=== PATIENT | female | born 2000 | race Caucasian/White ===

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

== ENCOUNTER → 2023-04-19 | Outpatient (CLI) | payer OTHER, SELFPAY ==
[2023-04-19 17:52] LABS: Hematocrit 44.8 % (37-47); Hemoglobin 15.5 g/dL (12.0-15.0)
== END | disposition home or self-care (01) ==
LOC: LAB 16:23
DX: F64.9 Gender identity disorder, unspecified (principal)
CPT/HCPCS: 36415; 85014; 85018

== ENCOUNTER → 2023-10-17 | Outpatient (CLI) | payer OTHER, SELFPAY ==
[2023-10-17 16:21] LABS: Hematocrit 42.5 % (37-47); Hemoglobin 14.3 g/dL (12.0-15.0)
== END | disposition home or self-care (01) ==
DX: F64.9 Gender identity disorder, unspecified (principal)
CPT/HCPCS: 36415; 84403; 85014; 85018